=== PATIENT | female | born 1930 | race Caucasian/White ===

== ENCOUNTER → 2017-03-31 | Day surgery (SDC) | payer OTHER ==
[~2017-03-31] VITALS: Ht 152.4 cm; Wt 63.5 kg
[~2017-03-31] MED LIST: AMLODIPINE BESY10 M1 PO; HYDROCHLOROTHIA25 M1 PO; KLOR-CON 1010 ME1 PO; LIPITOR40 M1 PO; TOPROL XL50 M1 PO
--- NOTE | 2017-03-31 11:15 | Operative Report ---
Operative/Inv Procedure Report Surgery Date: 03/31/17 Name of Procedure: Exchange intraocular lens right eye Pre-Operative Diagnosis: Dis located intraocular lens right eye 20/40 vision Post-Operative Diagnosis: Same Estimated Blood Loss: none Surgeon/Crane Man: RUPERT PATTON,ZENAIDA Arreguin Anesthesia: local monitored anesthesi Operative/Procedure Note Note: Patient was seen in the office with a dislocated lens in the right eye there was a very small pupil so the extent of any capsular damage could not be assessed the patient was consented for removal and exchange of intraocular lens and potential vitrectomy. The patient was brought to the operating room standard monitoring equipment was attached the patient was prepped and draped in the usual fashion for intraocular surgery. A lid speculum was placed to retract the lids. The case was begun by making [2] partial-thickness corneal relaxing [ incisions] at 35. 4 stab incisions into the anterior chamber were made with a 15 blade. A temporal incision with a 2.4 mm keratome. The eye was stabilized with a Sweet ring during this incision. 1 mL of non-preserved lidocaine was introduced into the anterior chamber to provide anesthesia. The anterior chamber was then filled and deepened with viscoelastic. Four iris expanders were then introduced, the iris engaged and the pupil enlarged by retracting the collar on each ice cream vendor. A second or paracentesis incision was made temporally with a 1 mm MVR blade. More viscoelastic was then used to expand the anterior chamber. The lens was inspected and it was found to be completely out of the bag which had fibrosed to itself behind the implant. A decision was made to cut and remove this lens and replace it with a 3 piece posterior chamber lens because the posterior capsule anterior capsule complex was intact. The lens was cut into 3 pieces each of which was removed from the main incision. The posterior capsule was re-inspected and found to be still intact. The anterior chamber was deepened with viscoelastic. The new lens a TFE90MY 16.0 Diopter was folded and placed into the anterior chamber through an enlarged incision and situated so that the haptics were underneath the iris and the optic was centered. Viscoelastic was then removed from the eye by flushing it out and then by automated irrigation and aspiration. 3 10-0 nylon sutures were placed to suture the main incision as well as one through one of the intracorneal incisions which was found to be leaking. The eye was pressurized to a normal tone. Miostat was introduced into the eye to bring down the pupil which came down in most areas. Repeated attempts to sweep the iris from away from the temporal incision were made. Eventually decision was made that this was the best that could be done with the iris position. Miostat was left in the eye. The lid speculum was removed from the orbit. Antibiotic and steroid drops were placed on the eye and then the eye was shielded. Monitoring equipment was removed from the patient and the patient was removed from the operative suite to the holding area. The patient tolerated the procedure well and will be seen in the office tomorrow.
== END ==
LOC: STS 02:10
DX: T85.22XA Displacement of intraocular lens, initial encounter (principal); I10 Essential (primary) hypertension; E07.89 Other specified disorders of thyroid; I48.91 Unspecified atrial fibrillation; N28.9 Disorder of kidney and ureter, unspecified; Z87.891 Personal history of nicotine dependence
CPT/HCPCS: J2250; V2632